=== PATIENT | male | born 1965 | race Caucasian/White ===

== ENCOUNTER 2016-11-16 22:09 | Emergency (ER) | payer OTHER ==
[~2016-11-16 22:09] MED LIST: ACETAMINOPHEN/H1 TA6 PO; COL250 PO; ZES10 PO
[2016-11-16 23:42] LABS: BASOPHIL % 0.3 % (0-2); PLATELET COUNT 257 x10^3mcL (130-400); RED CELL DISTRIBUTION WIDTH 13.7 % (11.5-14.5)
[2016-11-16 23:43] LABS: CALCIUM 8.8 mg/dL (8.5-10.1); CARBON DIOXIDE 27.4 mmol/L (21-32); CREATININE SERUM 1.4 mg/dL (0.7-1.3)
[2016-11-16 23:47] LABS: microscopic required? YES; urine erythrocyte 3+ (NEGATIVE)
[2016-11-16 23:55] LABS: ALBUMIN 3.7 g/dL (3.4-5.0); BILIRUBIN TOTAL 0.42 mg/dL (0.20-1.00); TOTAL PROTEIN, SERUM 7.1 g/dL (6.4-8.2)
[2016-11-17 01:16] VITALS: BP 121/78
== END 2016-11-17 01:16 | disposition home or self-care (01) ==
LOC: ED 22:09
PROVIDERS: Emergency Medicine
DX: N20.1 Calculus of ureter (principal); R03.0 Elevated blood-pressure reading, without diagnosis of hypertension; Z79.899 Other long term (current) drug therapy
CPT/HCPCS: J1885; J2405; Q0092